=== PATIENT | female | born 1980 | race Caucasian/White ===

== ENCOUNTER 2019-02-24 19:13 | Emergency (ER) | payer OTHER ==
[~2019-02-24] VITALS: Ht 152.4 cm; Wt 62.7 kg
[2019-02-24 20:01] VITALS: Ht 152.4 cm; Wt 62.7 kg
[2019-02-24] MEDS ORDERED: MULTI-DAY VITAM1 TAB PO (20:02)
[2019-02-24] MEDS ORDERED: BACTRIM 400-801 TAB PO (21:03)
[2019-02-24] MEDS ORDERED: VOLTAREN75 MG PO (21:03)
[2019-02-24 21:20] VITALS: BP 131/92
== END 2019-02-24 21:20 | disposition home or self-care (01) ==
LOC: D.ER 19:13
DX: S61.210A Laceration without foreign body of right index finger without damage to nail, initial encounter (principal); W25.XXXA Contact with sharp glass, initial encounter; I10 Essential (primary) hypertension; F17.200 Nicotine dependence, unspecified, uncomplicated